=== PATIENT | male | born 1960 | race Caucasian/White ===

== ENCOUNTER 2020-06-28 07:13 | Emergency (ER) | payer BC ==
--- NOTE | 2020-06-28 08:50 | ER Document Report ---
ED Extremity Problem, Lower - General Chief Complaint: Leg Pain Stated Complaint: RIGHT LEG PAIN,SWELLING Time Seen by Provider: 06/28/20 08:29 Primary Care Provider: RICHARD RUVALCABA MD [NO LOCAL MD] - Follow up as needed JENNIFER ESQUIVEL MD [COMMUNITY BASED STAFF] - Follow up as needed SEVERIANO RAMOS MD [ACTIVE STAFF] - Follow up as needed Mode of Arrival: Ambulatory Information source: Patient Notes: 60-year-old male patient presents emergency department chief complaint of tender, swollen painful area to his right lower extremity. He states 3 days ago he started having what he felt like a small knot to the area. He states over the last 2 days it has significantly gotten worse, there is now a large knot with surrounding erythema. It is warm and very tender. He denies any fever, chills, nausea, vomiting, diarrhea, dysuria, urinary frequency, testicular pain. He denies any past medical history, he does not see a physician and does not take any medications. - Related Data Allergies/Adverse Reactions: No Known Allergies Allergy (Unverified 06/28/20 08:20) Past Medical History - General Information source: Patient - Social History Smoking Status: Current Every Day Smoker Chew tobacco use (# tins/day): No Frequency of alcohol use: Occasional Drug Abuse: None Family History: None Patient has homicidal ideation: No - Medical History Medical History: Negative Surgical Hx: Negative - Immunizations Immunizations up to date: Yes Review of Systems - Review of Systems Constitutional: No symptoms reported EENT: No symptoms reported Cardiovascular: No symptoms reported Respiratory: No symptoms reported Gastrointestinal: No symptoms reported Genitourinary: No symptoms reported Male Genitourinary: No symptoms reported Musculoskeletal: See HPI Skin: See HPI Hematologic/Lymphatic: No symptoms reported Neurological/Psychological: No symptoms reported Physical Exam - Vital signs Vitals: Temp Pulse Resp BP Pulse Ox 98.5 F 91 16 156/91 H 96 06/28/20 07:19 06/28/20 07:19 06/28/20 07:19 06/28/20 07:19 06/28/20 07:19 - Notes Notes: PHYSICAL EXAMINATION: GENERAL: Well-appearing, well-nourished and in no acute distress. HEAD: Atraumatic, normocephalic. EYES: Pupils equal round and reactive to light, extraocular movements intact, sclera anicteric, conjunctiva are normal. ENT: Nares patent, oropharynx clear without exudates. Moist mucous membranes. NECK: Normal range of motion, supple without lymphadenopathy LUNGS: Breath sounds clear to auscultation bilaterally and equal. No wheezes rales or rhonchi. HEART: Regular rate and rhythm without murmurs ABDOMEN: Soft, nontender, nondistended abdomen. No guarding, no rebound. No masses appreciated. Musculoskeletal: Normal range of motion, no pitting or edema. No cyanosis. NEUROLOGICAL: Cranial nerves grossly intact. Normal speech, normal gait. Normal sensory, motor exams PSYCH: Normal mood, normal affect. SKIN: Tender area of erythema noted to right lower extremity on the inner aspect of the thigh. There is a large palpable mass/node. Course - Re-evaluation Re-evalutation: 06/28/20 08:49 Patient has cellulitis to his right lower extremity with what appears to be a developing abscess. Unfortunately it is not consistent with a classic abscess so I will send the patient for an ultrasound. Patient declined the need for any pain medication. Extremity Ultrasound 06/28/20 08:47 IMPRESSION: Probable enlarged lymph node at the site of palpable tenderness in the medial superior aspect of the right thigh that measures 2.2 x 1.5 x 1.2 cm. There is associated subcutaneous edema throughout the right groin and medial aspect of the right thigh. There is no drainable abscess. Patient was reevaluated with attending physician, Dr. Phillips. Patient does have an elevated white blood count however he does not appear septic. He has not had any vomiting. He should be able to tolerate oral antibiotics. The ultrasound showed an enlarged lymph node with surrounding cellulitis but no abscess. Area was traced out with a surgical marker. Patient was given very strict ED return precautions and he verbalized understanding and agreement with same. He will be started on Keflex. He was given a dose of cefazolin here in the emergency department. - Vital Signs Vital signs: Temp Pulse Resp BP Pulse Ox 98.6 F 81 16 142/88 H 97 06/28/20 12:33 06/28/20 12:33 06/28/20 12:33 06/28/20 12:33 06/28/20 12:33 - Laboratory Result Diagrams: 06/28/20 11:14 06/28/20 11:14 Laboratory results interpreted by me: 06/28/20 06/28/20 11:14 11:14 WBC 15.4 H RDW 14.5 H Lymph % (Auto) 8.5 L Absolute Neuts (auto) 12.7 H Seg Neutrophils % 82.7 H Sodium 136.3 L C-Reactive Protein 89.3 H Discharge - Discharge Clinical Impression: Lymphadenopathy Cellulitis Qualifiers: Site of cellulitis: unspecified site Qualified Code(s): L03.90 - Cellulitis, unspecified Condition: Stable Disposition: HOME, SELF-CARE Additional Instructions: The rash is likely due to infection of your skin. You need to take the antibiotics as prescribed. Do not stop even if the rash goes away until you have completed all the antibiotics. The area of redness was traced out here in the emergency department with a marking pen. You need to return to emergency department if the redness spreads outside of this area by more than 2 cm in any direction. You should also return if you develop fevers with temperature greater than 101, persistent vomiting, worsening pain, or have any other symptoms that are concerning to you. Please consider establishing care with a primary care physician. Prescriptions: Cephalexin [Keflex] 500 mg PO QID #28 capsule Referrals: JENNIFER ESQUIVEL MD [COMMUNITY BASED STAFF] - Follow up as needed SEVERIANO RAMOS MD [ACTIVE STAFF] - Follow up as needed RICHARD RUVALCABA MD [NO LOCAL MD] - Follow up as needed
--- NOTE | 2020-06-28 10:19 | RADIOLOGY REPORT (SQ) ---
EXAM DESCRIPTION: U/S EXTREMITY NONVASCULAR LTD IMAGES COMPLETED DATE/TIME: 06/28/2020 10:01 am REASON FOR STUDY: eval for abscess, tender swollen erythemas area COMPARISON: None. TECHNIQUE: Static and dynamic grayscale and color Doppler images of the area of tenderness and eryth cristy in the medial superior aspect of the right thigh were obtained. LIMITATIONS: None. FINDINGS: At the site of tenderness and erythema in the medial superior aspect of the right thigh th ere is an ovoid structure with a echogenic center and a hypoechoic rim that measures 2.2 x 1.5 x 1.2 cm. There is subcutaneous edema throughout the right groin and medial aspect of the right thigh. Th ere is no discernible abscess. IMPRESSION: Probable enlarged lymph node at the site of palpable tenderness in the medial superior a spect of the right thigh that measures 2.2 x 1.5 x 1.2 cm. There is associated subcutaneous edema th roughout the right groin and medial aspect of the right thigh. There is no drainable abscess. TECHNICAL DOCUMENTATION: JOB ID: [id number] 2010 [employer]- All Rights Reserved Reading location - IP/workstation name: [email or web address]
[2020-06-28 11:28] LABS: ABSOLUTE BASOPHILS # (AUTO) 0.1 10^3/uL (0.0-0.2); ABSOLUTE LYMPHOCYTES (AUTO) 1.3 10^3/uL (0.5-4.7); ABSOLUTE MONOCYTES (AUTO) 1.3 10^3/uL (0.1-1.4); ABSOLUTE NEUT (AUTO) 12.7 10^3/uL (1.7-8.2); BASOPHILS % (AUTO) 0.4 % (0-2); EOSINOPHILS % (AUTO) 0.3 % (0-6); HEMATOCRIT 48.5 % (37.9-51.0); HEMOGLOBIN 16.5 g/dL (13.5-17.0); LYMPHOCYTES % (AUTO) 8.5 % (13-45); MEAN CORPUSCULAR HEMOGLOBIN 31.7 pg (27.0-33.4); MEAN CORPUSCULAR HGB CONC 34.1 g/dL (32.0-36.0); MEAN CORPUSCULAR VOLUME 93 fl (80-97); MONOCYTES % (AUTO) 8.1 % (3-13); PLATELET COUNT 185 10^3/uL (150-450); RED BLOOD COUNT 5.21 10^6/uL (4.35-5.55); RED CELL DISTRIBUTION WIDTH 14.5 % (11.5-14.0); SEGMENTED NEUTROPHILS % (AUTO) 82.7 % (42-78); TOTAL CELLS COUNTED % (AUTO) 100 %; WHITE BLOOD COUNT 15.4 10^3/uL (4.0-10.5)
[2020-06-28] MEDS ORDERED: CEFAZOLIN 2 GM/D5W RTU 2 GM/50 ML RTUPB IV ONE (11:50)
[2020-06-28 12:02] LABS: ALBUMIN 4.3 g/dL (3.5-5.0); ALKALINE PHOSPHATASE 55 U/L (38-126); ANION GAP 7 (5-19); ASPARTATE AMINO TRANSFERASE 18 U/L (17-59); BILIRUBIN,TOTAL 1.2 mg/dL (0.2-1.3); BLOOD UREA NITROGEN 18 mg/dL (7-20); C-REACTIVE PROTEIN 89.3 mg/L (<10.0); CALCIUM 9.7 mg/dL (8.4-10.2); CARBON DIOXIDE 29 mmol/L (22-30); CHLORIDE 100 mmol/L (98-107); GLUCOSE 104 mg/dL (75-110); POTASSIUM 4.3 mmol/L (3.6-5.0); TOTAL PROTEIN 7.3 g/dL (6.3-8.2)
[2020-06-28 12:22] LABS: ERYTHROCYTE SEDIMENTATION RATE 10 mm/hr (0-20)
[2020-06-28 12:37] VITALS: BP 142/88
== END 2020-06-28 12:57 | disposition home or self-care (01) ==
LOC: ER 07:13
DX: L03.115 Cellulitis of right lower limb (principal); R59.0 Localized enlarged lymph nodes; D72.829 Elevated white blood cell count, unspecified; F17.200 Nicotine dependence, unspecified, uncomplicated
CPT/HCPCS: 99285; 96365; 36415; 87040; 83605; 85025; 85652; 86140; 80053; 76882; J0690